=== PATIENT | male | born 1945 | race Caucasian/White ===

== ENCOUNTER 2023-12-19 18:21 | Inpatient (IN) | payer OTHER ==
[~2023-12-19] VITALS: Ht 152.4 cm; Wt 86.2 kg
[2023-12-19] MEDS ORDERED: FUROsemide 20 MG/2 ML VIAL IV ONE (20:30)
[2023-12-19] MEDS ORDERED: ASPIRIN 81 MG TAB.CHEW PO ONE (20:30)
[2023-12-19] MEDS ORDERED: 0.9 % SODIUM CHLORIDE 1,000 ML IV SCH (20:30)
[2023-12-19] MEDS ORDERED: MORPHINE SULFATE 2 MG/ML CARTRIDGE IV ONE (20:30)
[2023-12-19 20:59] LABS: HEMATOCRIT 34.9 % (39.0-48.0); HEMOGLOBIN 12.1 g/dL (13-16.00); MEAN CELL VOLUME 83.4 fL (80.0-100.00); MEAN CORPUSCULAR HGB CONC 34.8 g/dl (32.0-36.0); PLATELET COUNT 219 K/uL (150-450); RED BLOOD COUNT 4.18 M/uL (4.00-6.00); RED CELL DISTRIBUTION WIDTH 14.4 % (11.5-14.5)
[2023-12-19 21:20] LABS: INR 1.27; PARTIAL THROMBOPLASTIN TIME 35.2 SECONDS (22.0-34.0); PROTHROMBIN TIME 13.1 SECONDS (9.0-11.5)
[2023-12-19 21:24] LABS: BILIRUBIN TOTAL 0.91 mg/dL (0.3-1.2); CALCIUM 9.4 mg/dL (8.5-10.1); CREATININE SERUM 1.7 mg/dL (0.70-1.30); GFR 38.97; GLOBULINA 3.3 G/DL (2.4-3.5); POTASSIUM 4.52 mEq/L (3.5-5.1); TOTAL PROTEIN 7.3 gm/dL (6.4-8.2)
[2023-12-19] MEDS ORDERED: NITROGLYCERIN 0.4 MG TAB.SUBL SL ONE (21:45)
[2023-12-19] MEDS ORDERED: [UNRECOGNIZED DRUG - OTHER] IV ONE (21:45)
[2023-12-19] MEDS ORDERED: NITROGLYCERIN IN 5 % DEXTROSE 250 ML IV SCH (22:00)
[2023-12-19 23:08] LABS: URINE APPEARANCE Clear; URINE BILIRRUBIN Negative (NEGATIVE); URINE BLOOD Large; URINE COLOR Red; URINE GLUCOSE Negative (NEGATIVE); URINE LEUKOCYTE Trace; URINE NITRATE Negative; URINE PROTEIN Negative (NEGATIVE); URINE UROBILINOGEN 0.2 E.U./dl
[2023-12-19 23:11] LABS: URINE BACTERIA 147.4 uL (0.0-1933); URINE RBC 6433.3 uL (0.0-20.8); URINE WBC 19.2 uL (0.0-23.2)
[2023-12-19 23:44] LABS: URINE EPITHELIAL CELLS 0.4 uL (0.0-38.8)
[2023-12-19] MEDS ORDERED: ACETAMINOPHEN 500 MG GEL..CAP PO PRN (23:45)
[2023-12-19] MEDS ORDERED: ONDANSETRON HCL 4 MG in 0.9 % SODIUM CHLORIDE 50 ML IV PRN (23:45)
[2023-12-20 00:01] LABS: ABG PH 7.461 (7.35-7.45); ABG PO2 78.2 mmHg (80-100); ABG pCO2 33.4 mmHg (35-45); BASE EXCESS 0.2 mmol/l; BICARBONATE 23.3 mmol/l (23-25); Tco2 24.3 mmol/l
[2023-12-20 00:02] LABS: allen test SATISFACTORY; o2 21 %; puncture site RADIAL RIGHT
[2023-12-20 00:03] LABS: SaO2 96.2 %
[2023-12-20] MEDS ORDERED: IPRATROPIUM BROMIDE 0.5 MG/2.5 ML AMPUL.NEB IH SCH (01:00)
[2023-12-20] MEDS ORDERED: FUROsemide 20 MG/2 ML VIAL IV SCH (01:00)
[2023-12-20] MEDS ORDERED: ENOXAPARIN SODIUM 30 MG/0.3 ML SYRINGE SUBCUTANEO SCH (09:00)
[2023-12-20] MEDS ORDERED: ATORVASTATIN CALCIUM 40 MG TABLET PO SCH (09:00)
[2023-12-20] MEDS ORDERED: FAMOTIDINE/PF 20 MG in 0.9 % SODIUM CHLORIDE 8 ML IV PUSH SCH (09:00)
[2023-12-20] MEDS ORDERED: ASPIRIN 81 MG TAB.CHEW PO SCH (09:00)
[2023-12-21] MEDS ORDERED: NIFEDIPINE 30 MG TAB.SA.OSM PO SCH (09:00)
[2023-12-21] MEDS ORDERED: FUROsemide 20 MG/2 ML VIAL IV SCH (09:00)
[2023-12-21 13:35] LABS: ALBUMIN 3.9 gm/dL (3.4-5.0); BILIRUBIN TOTAL 1.12 mg/dL (0.3-1.2); CREATININE SERUM 1.71 mg/dL (0.70-1.30); GFR 38.71; GLOBULINA 3.7 G/DL (2.4-3.5); POTASSIUM 3.68 mEq/L (3.5-5.1); TOTAL PROTEIN 7.6 gm/dL (6.4-8.2)
== END 2023-12-21 20:44 | disposition left against medical advice (07) | DRG 291 ==
LOC: ER 18:21 → ICU-2 23:48 → MEDJ 12-21 15:48
PROVIDERS: General Practice; Internal Medicine; ADMIT Specialist; ATTEND Specialist
PROC: 4A12X4Z Monitoring of Cardiac Electrical Activity, External Approach (ICD-10-PCS; principal; 2023-12-19)
PROC: B24BZZZ Ultrasonography of Heart with Aorta (ICD-10-PCS; 2023-12-19)
DX: I13.0 Hypertensive heart and chronic kidney disease with heart failure and stage 1 through stage 4 chronic kidney disease, or unspecified chronic kidney disease (principal); I50.33 Acute on chronic diastolic (congestive) heart failure; N17.9 Acute kidney failure, unspecified; Z79.4 Long term (current) use of insulin; I25.10 Atherosclerotic heart disease of native coronary artery without angina pectoris; E11.22 Type 2 diabetes mellitus with diabetic chronic kidney disease; N18.9 Chronic kidney disease, unspecified; E78.5 Hyperlipidemia, unspecified; J44.9 Chronic obstructive pulmonary disease, unspecified